=== PATIENT | female | born 1995 | race Caucasian/White ===

== ENCOUNTER → 2017-07-28 | Outpatient (CLI) | payer BC ==
--- NOTE | 2017-07-28 17:07 | RADRPT ---
PROCEDURE: XR Left Hip and pelvis. CLINICAL INDICATION: Left hip pain. Pelvic pain. TECHNIQUE: Two views. Frontal pelvis and lateral left hip. COMPARISON: No prior studies are available for comparison. FINDINGS: There is a cannulated screw in the left frontal head. There is no fracture or dislocation. The upper pelvis is not included on the images. Articular surfaces are intact. There is no lytic or blastic lesion. An IUD is present in the pelvis. IMPRESSION: 1. Cannulated screw in the left femoral head. 2. Upper pelvis not included on the images. 3. IUD in the pelvis. RPTAT: QQ .Jairon Villanueva MD, MD Date Time Electronically viewed and signed by .Jairon Villanueva MD, on 07/28/2017 17:06 .R/
--- NOTE | 2017-07-31 06:55 | HKNOTE ---
DATE OF SERVICE: 07/28/2017 MAIN COMPLAINT: Pain in the left hip. 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 Internal fixation was performed by Dr. Ivan Medina at the [facility] (? in [place]). After the "fracture" healed, the patient had no pain whatsoever until about 9 months ago. The hip f elt completely normal before that. She has had progressively increasing pain in the left groin since about 9 months ago. There is no h istory of injury. Condition is progressive. She "cannot see a pattern in the pain or its progressi on". She does however get pain in the groin with any prolonged standing. She works in [employer] and [email or web address] at involves standing all day. She is concerned about what is going on in her hip that had previousl y had surgery and also about her job. PRESENT COMPLAINTS: The pain in the left hip is localized to the groin. Pain has only aggravated b y prolonged standing, not by walking, weightbearing or stair climbing. She does not get any rest pa in or night pain. She does not have any problems sleeping. She takes ibuprofen for her pain. Othe rwise, she takes nothing. She used to run 3 miles at least once a week without difficulty. Lately, she is not able to do this anymore. She does not have any problems with her lower back. On a level surface she can walk a couple of mil es. She never uses a walking aid. Her right leg is longer than the left leg. She does not wear a shoe lift. SPORTING ACTIVITIES: Pilates. PAST ORTHOPEDIC HISTORY: Pinning of the left hip SCFE (slipped capital femoral epiphysis). PRIOR CORTISONE INTAKE: None. ALCOHOL INTAKE: Once a week. OTHER JOINT PROBLEMS: None. 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 PAST MEDICAL HISTORY: Entirely negative. PAST SURGICAL HISTORY: Pinning of the left hip femoral head 01/21/2006. DRUG ALLERGIES: NONE. MEDICATIONS: Ibuprofen. FAMILY HISTORY: Father age 54, alive and well. Mother age 57, alive and well. SYSTEMS REVIEW: Prone to headaches, possibly had hepatitis "as a kid", occasional fainting spells. HABITS: Patient does not smoke. She drinks 1 to 3 alcoholic beverages a week at most. The patient is referred by a former patient of mine (Nanbeni Latham). PHYSICAL EXAMINATION: GENERAL: The patient is a delightful and healthy looking 22-year-old female. VITAL SIGNS: Height 5 feet 7.75 inches, weight 136 pounds, blood pressure 160/70, temperature 99.2. GAIT: Patient's gait is normal. BACK: Dynamic pain assessment reveals a pain free range of motion in flexion, extension, lateral be nding, and rotation. Inspection of the spine reveals ____ no list. There is ____ no lumbar paraspina l muscle spasm. The pelvis is level. Facet stress test is negative bilaterally. Palpation of the spi ne demonstrates ____ no tenderness of the spinous processes, facet joints, sacroiliac joint, sciatic notch, or posterior thigh. NEUROLOGIC: Motor examination reveals no muscle deficit in the lower extremities. Deep tendon refl exes the lower extremities: Right knee jerk plus, left knee jerk plus, right ankle jerk plus, left ankle jerk plus. RIGHT HIP: A full range of motion without pain. LEFT HIP: A full range of motion without pain. No tenderness over the trochanter. RIGHT KNEE: The right knee shows normal alignment. Active and passive extension is 0 degrees. Activ e and passive flexion is 135 degrees. The medial and lateral collateral ligaments and cruciate ligam ents are intact. [place]idad test is negative. There is no effusion, tenderness, scarring, crepitus, or cysts. The patella tracks normally. There is no tenderness on the articular surface of the patella o r in the patellar groove. The Q angle is normal. LEFT KNEE: The left knee shows normal alignment. Active and passive extension is 0 degrees. Active and passive flexion is 135 degrees. The medial and lateral collateral ligaments and cruciate ligamen ts are intact. Trinidad test is negative. There is no effusion, tenderness, scarring, crepitus, or cy sts. The patella tracks normally. There is no tenderness on the articular surface of the patella or in the patellar groove. The Q angle is normal. IMAGING: Plain x-rays of the pelvis and left hip obtained today show that there has been an interna l fixation of a subcapital femoral epiphysis on the left hip which is healed completely and healed w ell. There seems to be some element of valgus to the hip joint through the proximal femur. No evid ence of avascular necrosis or fracture or any other underlying pathologic condition. If anything, t here is minimal narrowing of the hip joint space on the left. DISCUSSION: A 22-year-old female who had a slipped capital femoral epiphysis when she was 12. Inte rnal fixation was performed and after the surgery healed up, she had absolutely no trouble with her hip until 3 months ago. She is very definite about the pain being in her left groin. Physical exam ination of both hips reveals a full range of motion without pain. Neurological examination is compl etely normal. Straight leg raising is negative bilaterally at 80 degrees. This is an unusual case in that she had a definite problem in the left hip which completely settled down after the pinning of the femoral head was performed. Now the pain returned without any reason. MANAGEMENT: The patient will have MRI scan of the hip and she will be seen again in a week's time f or re-evaluation. Dictated By: RE FREDERICK/ALEXIS Conf#: [id number] DID#: [id number]
== END | disposition home or self-care (01) ==
LOC: HKI 10:36
DX: M25.552 Pain in left hip (principal)
CPT/HCPCS: 73502; G0463

== ENCOUNTER → 2017-08-06 | Outpatient (CLI) | END | disposition home or self-care (01) ==